=== PATIENT | female | born 1990 | race Caucasian/White ===

== ENCOUNTER 2022-02-12 07:16 | Inpatient (IN) ==
[2022-02-12] MEDS ORDERED: OXYTOCIN 30 UNITS/500 ML BAG IV PRN ×3 (07:31→15:44)
[2022-02-12] MEDS ORDERED: ceFAZolin 2000MG 2,000 MG/15 ML SYR IV STA (07:31)
--- NOTE | 2022-02-12 07:40 | History & Physical Report ---
Date of Service February 12, 2022 Assessment & Plan (1) Encounter for supervision of normal : Plan: Pt is a 31 y/o at 39 wks gestation presenting to L&D for IOL. 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 Pt has received routine care with [facility]. Unfortunately pt diagnosed with gilda ast cancer in 05/04. Pt seen by both [facility] oncology as well as [facility]. Pt started receiving chemotherapy in 10/04. MFM was consulted and recommended monthly growth U/S starting at 24 wks, which were done appropriately. Pt reports that her last chemo treatment was in November. Pt had breast surgery on 01/11 with a plan for IOL for today. Pt was found to be GBS+ on 01/12 and 02/05. Pt is O+, Rubella immune. Pt reports good movement. No contractions at this time. Some dark bloody discharge this morning, but had exam yesterday. No discharge of fluid. Pt would like an epidural when able. Pt has not other complaints at this time. OB Labs: Blood Type O Positive 08/07/21 Antibody Screen NEGATIVE 08/07/21 Hemoglobin 9.8 g/dL (12.0-16.0) L 11/27/21 Hematocrit 30.3 % (37-47) L 11/27/21 Mean Corpuscular Volume 89.8 fL (80-100) 08/07/21 Platelet Count 241 K/uL (130-400) 08/07/21 Rubella IgG Antibody Immune (Immune) 08/07/21 Rapid Plasma Reagin Nonreactive (Nonreactive) 08/07/21 Hepatitis B Surface Antigen Neg (Neg) 08/07/21 HIV (1&2) Ab and P24 Ag, 4th Gener Neg (Neg) 08/07/21 Glucose 1 Hour 50 gm Load 84 mg/dl (70-130) 11/27/21 OB Optional Labs: Chlamydia trachomatis RNA NOT DETECTED (NOT DETECTED) 08/07/21 Neisseria gonorrhoeae RNA NOT DETECTED (NOT DETECTED) 08/07/21 Allergies Allergy/AdvReac Type Severity Reaction Status Date / Time Penicillins Allergy Unknown Unknown Verified 02/12/22 07:42 Home Medications Medication Instructions Recorded Confirmed Type omeprazole 40 mg PO DAILY 07/31/21 02/12/22 History prenat.vits,john,[id number] 1 tab PO DAILY 07/31/21 02/12/22 History Patient History Medical History Acid reflux Surgical History (Updated 02/12/22 @ 07:38 by Brianna Ennis RN) S/P breast biopsy S/P endoscopy S/P right mastectomy 01/11/2022 S/P wisdom tooth extraction Family History (Updated 07/31/21 @ 09:53 by Zee Camarillo) Denies family history of Ovarian cancer Breast cancer Colorectal cancer Social History (Updated 02/12/22 @ 07:41 by Brianna Ennis RN) Smoking Status: Former smoker Hx Alcohol Use: No Hx Substance Use: No Preferred Language: South [place] Communication Ability: Effective Supervisor [employer] Department Required: No Beliefs That Will Affect Care: None marital status: Single marital status details: Miko Braden (34) [phone] Current Living Situation: Significant Other Current Living Situation Comment: Lives with Miko current occupational status: employed current occupation: [employer] & [employer] Other Information That Helps Us Care for You: No Feels Safe at Home: Yes Safety Concerns: Feels Safe At This Time Assistive Devices: None Review of Systems Denies fevers/chills. Denies dyspnea, cough. Denies chest pain. Denies breast pain or discharge. Denies dysuria. Denies headache. Denies back pain. Physical Exam Physical Exam: General: Alert, oriented, no acute distress Cardiac: Regular rate and rhythm, normal S1, S2. No murmurs appreciated. Respiratory: Clear to auscultation b/l with good air flow entry, symmetric chest rise and fall. No wheezes or crackles. No increased work of breathing or accessory muscle use Abdomen: Gravid, soft, nontender. No guarding or CVA tenderness Skin: No rashes or lesions Extremities: Warm, dry, well-perfused with capillary refill <2s b/l. No lower extremity edema, erythema or swelling. Negative Anthony's sign b/l. Pelvic Exam per Dr. Agarwal Dilation: Effacement: Station: FHR Baseline: 140 BPM Variability:good Accelerations:present Decelerations:none Supervising Physician Co-Signing Physician Notes Resident Physician Supervision Note: I interviewed and examined the patient. Discussed with Dr. Manzo and agree with findings and plan as documented in the note. Any exceptions or clarifications are listed here: 31 yo at 39wks requesting induction of labor. No rom, vb or ctx. +FM. PNC c/b 1. breast cancer s/p surgery 2. gbs pos PNL rh pos, ri, gbs pos. abd soft gravid nt efw 7-8#. ext nt calves. no edema. sve yest 50/-2 mid soft. fhts reactive. toco irreg. will start pitocin induction. kefzol for gbs prophylaxis. labs. iv. arom with regular pattern. fhts categ 1. Documented By: Marielena Agarwal MD, FACOG
[2022-02-12 07:57] LABS: Hematocrit (blood only) 28.7 % (37-47); Hemoglobin 9.1 g/dL (12.0-16.0); Mean Corpuscular Hemoglobin 27.1 pg (25-34); Mean Corpuscular Hgb Conc 31.7 g/dL (32-36); Mean Corpuscular Volume 85.4 fL (80-100); Platelet Count 243 K/uL (130-400); RDW Coefficient of Variation 14.8 % (11.5-14.5); RDW Standard Deviation 46.1 fL (36.4-46.3); Red Blood Count 3.36 M/uL (4.2-5.4)
--- NOTE | 2022-02-12 08:04 | History & Physical Report ---
Date of Service February 12, 2022 Assessment & Plan Admission and Anticipated Discharge Date Admission Date: February 12, 2022 History of Present Illness Chief Complaint: induction Primary Care Provider: NO PCP 31yo at Allergies Allergy/AdvReac Type Severity Reaction Status Date / Time Penicillins Allergy Unknown Unknown Verified 02/12/22 07:42 Home Medications Medication Instructions Recorded Confirmed Type omeprazole 40 mg PO DAILY 07/31/21 02/12/22 History prenat.vits,john,[id number]-[id number] 1 tab PO DAILY 07/31/21 02/12/22 History Patient History Medical History Acid reflux Surgical History (Updated 02/12/22 @ 07:38 by Brianna Ennis RN) S/P breast biopsy S/P endoscopy S/P right mastectomy 01/11/2022 S/P wisdom tooth extraction Family History (Updated 07/31/21 @ 09:53 by Zee Camarillo) Denies family history of Ovarian cancer Breast cancer Colorectal cancer Social History (Updated 02/12/22 @ 07:41 by Brianna Ennis RN) Smoking Status: Former smoker Hx Alcohol Use: No Hx Substance Use: No Preferred Language: Chadian Communication Ability: Effective Barrel And Receiver Aligner Required: No Beliefs That Will Affect Care: None marital status: Single marital status details: Miko Braden (34) [phone] Current Living Situation: Significant Other Current Living Situation Comment: Lives with Miko current occupational status: employed 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
[2022-02-12] MEDS: LACTATED RINGER'S 1,000 ML IV PRN ×3 (08:28→13:11)
[2022-02-12] MEDS ORDERED: ePHEDrine sulfate 50 MG/ML AMP ONE (11:54)
[2022-02-12] MEDS ORDERED: fentaNYL citrate 100 MCG/2 ML VIAL ONE (11:55)
[2022-02-12] MEDS ORDERED: BUPIVACAINE 0.25% 30 ML VIAL ONE (11:55)
[2022-02-12] MEDS ORDERED: SODIUM CHLORIDE 0.9% INJ 10 ML VIAL ONE (11:55)
[2022-02-12] MEDS ORDERED: fentaNYL 2MCG/ML ROPIVACAINE 1.25MG/ML 100 ML BAG EPI ONE (11:56)
[2022-02-12] MEDS ORDERED: ONDANSETRON INJ 2 MG/ML 2 ML VIAL IV PRN (12:22)
[2022-02-12] MEDS ORDERED: NALBUPHINE HCL INJ 10 MG/ML AMP IV PRN (12:22)
[2022-02-12] MEDS ORDERED: NALOXONE HCL 0.4 MG/1 ML VIAL/CARP IV PRN (12:22)
[2022-02-12] MEDS ORDERED: fentaNYL 2MCG/ML ROPIVACAINE 1.25MG/ML 100 ML BAG EPI PRN (12:22)
[2022-02-12] MEDS ORDERED: NALOXONE HCL 1 MG in SODIUM CHLORIDE 0.9% 1000ML 1,000 ML IV PRN (12:22)
[2022-02-12] MEDS ORDERED: diphenhydrAMINE 50 MG/ML VIAL IV PRN (12:22)
[2022-02-12] MEDS ORDERED: ePHEDrine sulfate 50 MG/ML AMP IV PRN (12:22)
--- NOTE | 2022-02-12 12:22 | Anesthesiology Consultation ---
Date of Service February 12, 2022 Assessment & Plan (1) Encounter for pre-operative examination: Chart Review Chart Review: Patient NOT seen in Pre Admission Testing and Acceptable Risk for Labor Epidural Consults Requested none History Height/Weight Height: 5 ft 2 in Weight: 75.296 kg Allergies Allergy/AdvReac Type Severity Reaction Status Date / Time Latex, Natural Rubber Allergy Mild Rash Verified 02/12/22 09:52 Penicillins Allergy Unknown Unknown Verified 02/12/22 07:42 Medications Home Medications Medication Instructions Recorded Confirmed Last Taken omeprazole 40 mg PO DAILY 07/31/21 02/12/22 02/12/22 06:00 prenat.vits,john,[id number] 1 tab PO DAILY 07/31/21 02/12/22 Unknown Active Medications Generic Name Dose Route Start Last Admin Trade Name Freq PRN Reason Stop Dose Admin Lactated Ringer's 1,000 mls @ 125 mls/hr 02/12/22 07:31 02/12/22 11:50 Lr IV 02/14/22 07:30 999 mls/hr .Q8H PRN Infusion L&D Protocol Protocol Oxytocin 30 units in 500 mls @ 7 mls/hr 02/12/22 08:16 02/12/22 10:33 Pitocin IV 02/14/22 08:15 0.42 units/hr .Q24H PRN 7 mls/hr Labor Induction/Augmentation Titration Protocol 0.42 UNITS/HR Past Medical History Medical History Acid reflux Past Family History Family History Denies family history of Ovarian cancer Breast cancer Colorectal cancer Past Surgical History Surgical History S/P breast biopsy S/P endoscopy S/P right mastectomy 01/11/2022 S/P wisdom tooth extraction Social History Smoking Status: Former smoker Hx Alcohol Use: No Hx Substance Use: No Physical Exam Vital Signs Last Vital Signs Temp 36.7 C 02/12/22 08:42 Pulse 75 02/12/22 12:18 Resp 20 02/12/22 10:37 BP 130/75 02/12/22 10:37 Pulse Ox 100 02/12/22 12:18 Testing Laboratory Results 02/12/22 07:45
--- NOTE | 2022-02-12 13:48 | Labor Progress Brief Note ---
Date of Service February 12, 2022 Subjective comfortable after epidural Assessment & Plan (1) Encounter for induction of labor: Plan: good cx change. anticip 2nd stage soon. fhts categ 2, +scalp stim response. Admission and Anticipated Discharge Date Admission Date: February 12, 2022 Physical Exam 2 Constitutional: WD/WN, vitals as above Genitourinary: Manual OB Exam: + cervical dilation 9 cm, + cervical effacement 100% and + station + 1 OB Exam Monitor Tracing: + external FHT monitor used (+scalp stim response), + external uterine monitor used (q2), + category II, + normal FHT variability and + variable decelerations Results & Data ([facility]) Vital Signs (Past 12 Hours) Vital Signs Temp Pulse Resp BP Pulse Ox 02/12/22 13:38 86 98 02/12/22 13:33 92 H 98 02/12/22 13:32 81 116/58 L 02/12/22 13:28 90 120/57 L 98 02/12/22 13:23 86 98 02/12/22 13:21 83 18 116/62 02/12/22 13:18 82 99 02/12/22 13:15 85 18 109/54 L 02/12/22 13:14 90 18 118/55 L 02/12/22 13:13 92 H 99 02/12/22 13:11 98 H 18 114/53 L 02/12/22 13:09 95 H 18 111/54 L 02/12/22 13:08 97 H 98 02/12/22 13:07 92 H 18 113/59 L 02/12/22 13:05 97.9 F 95 H 18 118/58 L 02/12/22 13:03 95 H 118/57 L 99 02/12/22 13:01 98 H 18 125/63 02/12/22 12:59 86 126/61 02/12/22 12:58 90 99 02/12/22 12:57 84 129/63 02/12/22 12:55 76 140/83 02/12/22 12:53 79 99 02/12/22 12:52 77 135/80 02/12/22 12:48 77 98 02/12/22 12:43 89 99 02/12/22 12:38 95 H 100 02/12/22 12:33 82 99 02/12/22 12:28 83 98 02/12/22 12:23 77 100 02/12/22 12:18 75 100 02/12/22 12:13 83 98 02/12/22 12:08 85 99 02/12/22 10:37 98.1 F 80 20 130/75 02/12/22 09:12 86 20 121/65 02/12/22 08:42 98.1 F 85 20 131/72 02/12/22 07:45 98.1 F 18 02/12/22 07:37 92 H 18 141/81 H Coding Level of Care Code None Diagnoses Encounter for induction of labor Z34.90
[2022-02-12] MEDS ORDERED: ceFAZolin 1000MG 1,000 MG/7.5 ML SYR IV PRN (14:31)
[2022-02-12] MEDS ORDERED: ERYTHROMYCIN OP OINT 1 GM PKT ONE (14:43)
--- NOTE | 2022-02-12 15:32 | Delivery Summary ---
Vaginal Delivery Summary Date of Service February 12, 2022 Vaginal Delivery Summary The patient dilated to complete and pushed to deliver a viable male Apgars 8 and 9 via over intact perineum. With delivery of cephalic, shoulder dystocia encountered, moderate, relieved with McRobert's maneuvers and suprapubic pressure and effective maternal expulsive efforts. Remainder of shoulders and body delivered with ease. was vigorous and crying at . Cord clamped at 30 seconds of life and to maternal abdomen where the cord was then doubly clamped and cut. Placenta delivered spontaneously and intact, three-vessel cord. Hemostasis not achieved with dilute pitocin and uterine massage and drainage of the bladder for approximately 100 cc under sterile conditions. Therefore, 800mcg rectal cytotec placed and hemostasis improved. Cervix and sulci intact. Bilateral hymenal-labial lacerations repaired with 3-0 vicyrl in usual fashion for excellent hemostasis. EBL 400 cc. Mother and baby stable recovery. [facility] Vaginal Delivery Charge Delivery Type Details:
[2022-02-12] MEDS ORDERED: miSOPROStoL 200 MCG TAB ONE (15:40)
[2022-02-12] MEDS ORDERED: DIPHTHERIA/TETANUS/PERTUSSIS 0.5 ML SYR/VIAL IM ONE (15:44)
[2022-02-12] MEDS ORDERED: BENZOCAINE 20% AER SPR 82.5 GM CAN EXT PRN (15:44)
[2022-02-12] MEDS ORDERED: bisacodyL 10 MG SUPP PR PRN (15:44)
[2022-02-12] MEDS ORDERED: HYDROCORTISONE ACETATE 25 MG SUPP PR PRN (15:44)
[2022-02-12] MEDS ORDERED: ACETAMINOPHEN 325 MG TAB PO PRN (15:44)
--- NOTE | 2022-02-12 17:27 | Anesthesiology Progress Note ---
Date of Service February 12, 2022 Anesthesia Post Procedure Vital Signs Vital Signs: Temp Pulse Resp BP Pulse Ox 02/12/22 17:22 95 H 123/57 L 02/12/22 17:06 86 146/68 H 02/12/22 16:51 97 H 129/92 02/12/22 16:36 90 127/93 02/12/22 16:26 90 158/83 H 02/12/22 16:22 90 155/100 H 02/12/22 16:15 20 02/12/22 16:06 83 139/68 02/12/22 16:00 20 02/12/22 15:52 90 134/64 02/12/22 15:36 91 H 136/81 02/12/22 15:30 18 02/12/22 15:21 98 H 130/78 02/12/22 15:06 96 H 22 144/83 H 02/12/22 14:59 97 H 92 02/12/22 14:58 88 97 02/12/22 14:53 96 H 100 02/12/22 14:48 115 H 98 02/12/22 14:43 90 100 02/12/22 14:41 101 H 90 02/12/22 14:38 90 100 02/12/22 14:33 88 100 02/12/22 14:28 89 99 02/12/22 14:25 95 H 93 02/12/22 14:23 85 99 02/12/22 14:22 89 20 124/60 02/12/22 14:18 93 H 99 02/12/22 14:13 92 H 99 02/12/22 14:08 92 H 99 02/12/22 14:07 101 H 91 02/12/22 14:06 98 H 119/61 02/12/22 14:03 83 100 02/12/22 13:58 80 100 02/12/22 13:53 77 99 02/12/22 13:52 84 20 123/63 02/12/22 13:48 85 100 02/12/22 13:43 83 99 02/12/22 13:38 86 98 02/12/22 13:33 92 H 98 02/12/22 13:32 81 116/58 L 02/12/22 13:28 90 120/57 L 98 02/12/22 13:23 86 98 02/12/22 13:21 83 18 116/62 02/12/22 13:18 82 99 02/12/22 13:15 85 18 109/54 L 02/12/22 13:14 90 18 118/55 L 02/12/22 13:13 92 H 99 02/12/22 13:11 98 H 18 114/53 L 02/12/22 13:09 95 H 18 111/54 L 02/12/22 13:08 97 H 98 02/12/22 13:07 92 H 18 113/59 L 02/12/22 13:05 36.6 C 95 H 18 118/58 L 02/12/22 13:03 95 H 118/57 L 99 02/12/22 13:01 98 H 18 125/63 02/12/22 12:59 86 126/61 02/12/22 12:58 90 99 02/12/22 12:57 84 129/63 02/12/22 12:55 76 140/83 02/12/22 12:53 79 99 02/12/22 12:52 77 135/80 02/12/22 12:48 77 98 02/12/22 12:43 89 99 02/12/22 12:38 95 H 100 02/12/22 12:33 82 99 02/12/22 12:28 83 98 02/12/22 12:23 77 100 02/12/22 12:18 75 100 02/12/22 12:13 83 98 02/12/22 12:08 85 99 02/12/22 10:37 36.7 C 80 20 130/75 02/12/22 09:12 86 20 121/65 02/12/22 08:42 36.7 C 85 20 131/72 02/12/22 07:45 36.7 C 18 02/12/22 07:37 92 H 18 141/81 H Pain Intensity Abdomen: Pain Intensity: 1 Transfer of Care Handoff Completed per policy Notes Mental Status: alert / awake / arousable Nausea / Vomiting: adequately controlled Pain: adequately controlled Airway Patency, RR, SpO2: stable & adequate BP & HR: stable & adequate Hydration State: stable & adequate Neuraxial Anesthesia: was administered and sensory block is resolving Anesthetic Complications: no major complications apparent
--- NOTE | 2022-02-12 17:36 | Anesthesia Procedure Note ---
Date of Service February 12, 2022 Anesthesia Post Epidural Note Vital Signs Vital Signs: Temp Pulse Resp BP Pulse Ox 36.6 C 95 H 20 123/57 L 92 02/12/22 13:05 02/12/22 17:22 02/12/22 16:15 02/12/22 17:22 02/12/22 14:59 Pain Intensity Abdomen: Pain Intensity: 1 Notes Mental Status: alert / awake / arousable Nausea / Vomiting: adequately controlled Pain: adequately controlled Airway Patency, RR, SpO2: stable & adequate BP & HR: stable & adequate Hydration State: stable & adequate Neuraxial Anesthesia: was administered and sensory block is resolving Anesthetic Complications: no major complications apparent Epidural: Removed without complications and With tip intact
[2022-02-12] MEDS: IBUPROFEN 600 MG TAB PO PRN (18:18)
[2022-02-12] MEDS: DOCUSATE SODIUM 100 MG CAP PO SCH (20:21)
[2022-02-12] MEDS ORDERED: COUGH DROP (SUGAR FREE) LOZ 24 LOZ/1 BOX BUCCAL ONE (22:25)
[2022-02-13] MEDS: IBUPROFEN 600 MG TAB PO PRN (04:34)
--- NOTE | 2022-02-13 07:40 | Obstetrical Progress Note ---
Date of Service February 13, 2022 Assessment & Plan (1) Encounter for care and examination after delivery: Plan: 31yo PPD s/p at 39 wks. -Continue routine care -Vitals reviewed- HDS, afebrile -O+, GBS+ treated with cefazolin, Rubella immune -Encourage ambulation, regular diet -Pain control with ibuprofen, acetaminophen PRN -Encourage -Skin rash continuing to improve, no additional intervention at this time -Hgb pending -Possible D/c today since pt is bottle feeding, pending hgb and how pt feels. -F/u in 6 weeks withOB Admission and Anticipated Discharge Date Admission Date: February 12, 2022 Supervising Physician Co-Signing Physician Notes Resident Physician Supervision Note: I was present with Dr. Roland during the history and exam. I discussed the case with the resident and agree with the findings and plan as documented in the note. Any exceptions or clarifications are listed here: stable doing well. bottle feeding, eating/voiding and ambulating without prob. no bleeding issues. wants to go home. hgb returned at 8. ok if she tolerates with ambulation, enc testing that today. rash on neck, papular not bothersome, mastectomy rash improved, pt to monitor. abd soft ff nt 2 down, ext nt calves. ppd#1 s/p , ok to dc home later if tolerating hgb and doing well. instructions reviewed. f/u 6wk pp check. Documented By: Marielena Agarwal MD, FACOG Subjective PPD1 s/p . Patient seen and examined at bedside. Reports no acute overnight events. Ambulating and voiding. Pt is changing baby's diaper at when I arrived. Passing gas and stool. Regular diet w/o N/V. Lochia small. Bottle feeding with out difficulty. Pain 2/10 and controlled with NSAIDs. Pt had complaint of itchy rash yesterday at the site of her mastectomy which has improved without any intervention. Pt has some interest in going home today. Review of Systems Review of Systems: Denies fevers/chills. Denies dyspnea, cough. Denies chest pain. Denies breast pain or discharge. Denies dysuria. Denies headache. Denies back pain. Physical Exam Physical Exam: General: Alert, oriented, no acute distress Cardiac: Regular rate and rhythm, normal S1, S2. No murmurs appreciated. Respiratory: Clear to auscultation b/l with good air flow entry, symmetric chest rise and fall. No wheezes or crackles. No increased work of breathing or accessory muscle use Abdomen: Soft, nontender, nondistended. Fundus firm and palpable at 2 cm below umbilicus. No guarding or rebound. Skin: Erythematous rash covering the whole mastectomy site, some scattered, itchy lesions noted on neck, improved from yesterday. Extremities: Warm, dry, well-perfused with capillary refill <2s b/l. No lower extremity edema, erythema or swelling. Negative Nathony's sign b/l. Results & Data ([facility]) Vital Signs (Past 12 Hours) Vital Signs Temp Pulse Resp BP Pulse Ox 02/13/22 04:30 36.6 C 91 H 18 127/76 02/12/22 23:10 36.7 C 91 H 18 114/72 99 02/12/22 19:10 37.5 C 95 H 18 132/75 98
[2022-02-13] MEDS ORDERED: PRENATAL VITAMIN 1 TAB PO SCH (08:00)
[2022-02-13] MEDS: DOCUSATE SODIUM 100 MG CAP PO SCH (08:08)
[2022-02-13] MEDS ORDERED: NON-FORMULARY MEDICATION (Prenat.Vits,Cal,Min-Iron-Folic tablet) PO SCH (09:00)
[2022-02-13] MEDS ORDERED: PANTOprazole 40 MG TAB PO SCH (09:00)
[2022-02-13] MEDS ORDERED: diphenhydrAMINE Capsule 25 MG CAP PO ONE (15:56)
[2022-02-13] MEDS ORDERED: bisacodyL 5 MG TABEC PO SCH (20:00)
== END 2022-02-13 16:50 | disposition home or self-care (01) | DRG 807 ==
LOC: 4S1 07:16 → 4E2 19:19
DX: Z88.0 Allergy status to penicillin; Z85.3 Personal history of malignant neoplasm of breast; Z91.040 Latex allergy status; Z3A.39 39 weeks gestation of pregnancy; Z87.891 Personal history of nicotine dependence; O99.824 Streptococcus B carrier state complicating childbirth; Z37.0 Single live birth